=== PATIENT | female | born 1960 | race Caucasian/White ===

== ENCOUNTER 2022-10-15 16:45 | Inpatient (IN) | payer OTHER ==
[~2022-10-15] VITALS: Ht 154.9 cm; Wt 67.2 kg
[2022-10-15 17:58] LABS: BASOPHILS % 0.1 % (0.0-2.0); EOSINOPHILS % 1.5 % (0.0-5.0); HEMATOCRIT. 32.7 % (36.0-48.0); LYMPHOCYTES % 56.2 % (20.0-50.0); MEAN CORPUSCULAR HEMOGLOBIN 30.6 pg (28.0-32.0); MEAN CORPUSCULAR VOLUME 90.4 fL (81.0-99.0); MEAN PLATELET VOLUME 7.5 fl (7.4-10.4); NEUTROPHILS % 36.2 % (40.0-76.0); PLATELET 124 x1000/uL (130-400); RED BLOOD CELL COUNT 3.61 mill/uL (4.2-5.4); RED CELL DISTRIBUTION WIDTH 14.9 % (11.6-14.6)
[2022-10-15 18:05] LABS: CHLORIDE 104 mEq/L (98-107)
[2022-10-15 18:16] LABS: ETHANOL BLOOD < 10 mg/dL
[2022-10-15] MEDS ORDERED: ASPIRIN 300MG SUPP PR ONE (18:30)
[2022-10-15] MEDS ORDERED: IOHEXOL-350 100 ML BOTTLE ONE (18:32)
[2022-10-15 21:28] VITALS: BP 92/49
[2022-10-16 01:33] LABS: BASOPHILS % 0.2 % (0.0-2.0); EOSINOPHILS % 1.1 % (0.0-5.0); HEMOGLOBIN. 11.8 g/dL (12.0-16.0); LYMPHOCYTES % 47.1 % (20.0-50.0); MEAN CORPUSCULAR HEMOGLOBIN 30.2 pg (28.0-32.0); MEAN PLATELET VOLUME 7.8 fl (7.4-10.4); MONOCYTES % 6.1 % (2.0-8.0); NEUTROPHILS % 45.5 % (40.0-76.0); PLATELET 122 x1000/uL (130-400); RED BLOOD CELL COUNT 3.91 mill/uL (4.2-5.4); RED CELL DISTRIBUTION WIDTH 15.4 % (11.6-14.6)
[2022-10-16 01:53] LABS: CHLORIDE 107 mEq/L (98-107)
[2022-10-16 02:00] LABS: HDL CHOLESTEROL 62 mg/dL (40-59); LDL CHOLESTEROL 33 mg/dL (5-100)
[2022-10-16] MEDS ORDERED: SODIUM CHLORIDE 0.9% 500 ML IV ONE (02:15)
[2022-10-16 04:00] VITALS: BP 104/65
[2022-10-16] MEDS ORDERED: METFORMIN HCL 500MG TABLET PO SCH (07:40)
[2022-10-16 08:00] VITALS: BP 94/53
[2022-10-16] MEDS ORDERED: AMLODIPINE 10MG TABLET PO SCH (09:00)
[2022-10-16 12:00] VITALS: BP 102/46
[2022-10-16] MEDS: FLUOXETINE HCL 20MG CAPSULE PO SCH (12:27)
[2022-10-16] MEDS: VALPROIC ACID 250MG CAPSULE PO SCH ×2 (12:27→18:28)
[2022-10-16] MEDS: ATORVASTATIN CALCIUM 40MG TABLET PO SCH (12:28)
[2022-10-16 16:00] VITALS: BP 110/50
[2022-10-16] MEDS: ENOXAPARIN 40MG/0.4ML SYR SUBCUT SCH (18:29)
[2022-10-16 18:43] LABS: CLARITY URINE CLEAR (CLEAR); COLOR URINE YELLOW (YELLOW); KETONES URINE TRACE (NEGATIVE); LEUKOCYTE ESTERASE URINE NEGATIVE (NEGATIVE); NITRITE URINE NEGATIVE (NEGATIVE); OCCULT BLOOD URINE NEGATIVE (NEGATIVE); PH URINE 5.5 (4.5-8.0); PROTEIN URINE NEGATIVE (NEGATIVE); SPECIFIC GRAVITY URINE 1.015 (1.005-1.030); UROBILINOGEN URINE 0.2 E.U./dL (0.2-1.0)
[2022-10-16 20:00] VITALS: BP 103/61
[2022-10-16] MEDS ORDERED: QUETIAPINE FUMARATE 50MG TABLET PO SCH (21:00)
[2022-10-17] VITALS: BP 100/60
[2022-10-17 04:00] VITALS: BP 105/61
[2022-10-17 08:00] VITALS: BP 137/41
[2022-10-17] MEDS ORDERED: ASPIRIN 81MG TABLET PO SCH (09:00)
[2022-10-17] MEDS: VALPROIC ACID 250MG CAPSULE PO SCH ×2 (09:49→17:25)
[2022-10-17] MEDS: FLUOXETINE HCL 20MG CAPSULE PO SCH (09:49)
[2022-10-17] MEDS: ATORVASTATIN CALCIUM 40MG TABLET PO SCH (09:50)
[2022-10-17 12:00] VITALS: BP 109/67
[2022-10-17] MEDS ORDERED: ASPI-1406 MT (15:00)
[2022-10-17 16:00] VITALS: BP 112/65
[2022-10-17] MEDS: ENOXAPARIN 40MG/0.4ML SYR SUBCUT SCH (17:26)
[2022-10-17 18:58] VITALS: BP 114/69
== END 2022-10-17 20:48 | disposition home health service (06) | DRG 47 ==
LOC: ER 16:45 → 8WST 19:54 → EDBEDREQTM 19:59 → EDBEDREQSVC 19:59 → EDBEDREQ 19:59 → ENRESERV 20:23
PROVIDERS: ADMIT Internal Medicine; ATTEND Internal Medicine
PROC: 4A00X4Z Measurement of Central Nervous Electrical Activity, External Approach (ICD-10-PCS; principal; 2022-10-17)
DX: G45.9 Transient cerebral ischemic attack, unspecified (principal); E43 Unspecified severe protein-calorie malnutrition; F03.90 Unspecified dementia, unspecified severity, without behavioral disturbance, psychotic disturbance, mood disturbance, and anxiety; I69.354 Hemiplegia and hemiparesis following cerebral infarction affecting left non-dominant side; Z20.822 Contact with and (suspected) exposure to COVID-19; E11.9 Type 2 diabetes mellitus without complications; G40.909 Epilepsy, unspecified, not intractable, without status epilepticus; F31.9 Bipolar disorder, unspecified; I10 Essential (primary) hypertension; Z68.28 Body mass index [BMI] 28.0-28.9, adult
CPT/HCPCS: 36415; 70496; 70498; 70551; 71045; 80048; 80053; 80061; 80165; 80320; 81003; 82140; 82962; 83036; 83605; 83880; 84484; 85025; 87077; 87186; 87426; 93005; 95816; 97110; 97162; 97530; 99291; J1650; Q9967; G0480